=== PATIENT | female | born 1965 | race Caucasian/White ===

== ENCOUNTER → 2023-09-12 15:36 | Outpatient (REF) | payer OTHER, SELFPAY | LOC: HWRAD 15:36 | PROVIDERS: ATTENDING PHYSICIAN Family Medicine | DX: R10.31 Right lower quadrant pain (principal); R10.2 Pelvic and perineal pain | CPT/HCPCS: 74176 ==

== ENCOUNTER → 2023-09-29 09:06 | Outpatient (REF) | payer OTHER, SELFPAY | LOC: HWRAD 09:06 | PROVIDERS: ATTENDING PHYSICIAN Family Medicine | DX: R10.31 Right lower quadrant pain (principal); R10.2 Pelvic and perineal pain | CPT/HCPCS: 76700 ==

== ENCOUNTER → 2024-06-15 13:50 | Outpatient (REF) | payer OTHER, SELFPAY | LOC: WDC 13:50 | PROVIDERS: ATTENDING PHYSICIAN Family Medicine | DX: Z12.31 Encounter for screening mammogram for malignant neoplasm of breast (principal) | CPT/HCPCS: 77063; 77067 ==

== ENCOUNTER → 2024-07-27 19:31 | Outpatient (REF) | payer OTHER, SELFPAY | LOC: MRI 3T 19:31 | PROVIDERS: ATTENDING PHYSICIAN Physician Assistant Surgical; FAMILY PHYSICIAN Family Medicine | DX: C64.1 Malignant neoplasm of right kidney, except renal pelvis (principal) | CPT/HCPCS: 74183; A9575 ==

== ENCOUNTER → 2025-06-17 09:04 | Outpatient (REF) | payer OTHER, SELFPAY | LOC: HWRAD 09:04 | PROVIDERS: ATTENDING PHYSICIAN Family Medicine | DX: Z13.820 Encounter for screening for osteoporosis (principal); Z12.31 Encounter for screening mammogram for malignant neoplasm of breast | CPT/HCPCS: 77063; 77067; 77080 ==